=== PATIENT | female | born 1950 | race Caucasian/White ===

== ENCOUNTER → 2016-06-23 | Outpatient (CLI) | payer MEDICARE, OTHER ==
[~2016-06-23] VITALS: Ht 161.3 cm; Wt 107.0 kg
[~2016-06-23] MED LIST: COENZYME Q-10100 M1 PO; FOLIC ACID0.4 MG PO; GLUCOPHAGE1000 MG PO; LEXAPRO20 MG PO; PHENTERMINE15 MG PO; PRAVACHOL 20MG20 MG PO; SLEEP AID50 MG PO; VITAMIN B-1000 MCG/T PO; VITAMIN D31000 IU PO
[2016-06-23 13:05] VITALS: BP 120/74; PULSE 60
[2016-06-23 13:38] VITALS: BP 120/74; PULSE 60
== END ==
LOC: LIGHT 11:40
DX: E78.4 Other hyperlipidemia (principal); R73.01 Impaired fasting glucose; E66.01 Morbid (severe) obesity due to excess calories; Z68.41 Body mass index [BMI] 40.0-44.9, adult; K21.9 Gastro-esophageal reflux disease without esophagitis

== ENCOUNTER → 2016-09-22 | Outpatient (CLI) | payer MEDICARE, OTHER ==
[~2016-09-22] VITALS: Ht 161.3 cm; Wt 106.4 kg
== END ==
LOC: LIGHT 05-19 11:54
DX: E78.4 Other hyperlipidemia (principal); R73.01 Impaired fasting glucose; E66.01 Morbid (severe) obesity due to excess calories; Z68.41 Body mass index [BMI] 40.0-44.9, adult; K21.9 Gastro-esophageal reflux disease without esophagitis

== ENCOUNTER → 2016-10-17 | Outpatient (CLI) | payer MEDICARE, OTHER | LOC: MC.RAD 10-13 11:40 | DX: Z12.31 Encounter for screening mammogram for malignant neoplasm of breast (principal) ==

== ENCOUNTER → 2016-10-20 | Outpatient (CLI) | payer MEDICARE, OTHER ==
[~2016-10-20] VITALS: Ht 161.3 cm; Wt 106.8 kg
[2016-10-20 14:34] VITALS: BP 130/74; PULSE 58
== END ==
LOC: LIGHT 10:08
DX: E78.5 Hyperlipidemia, unspecified (principal); R73.01 Impaired fasting glucose; E66.01 Morbid (severe) obesity due to excess calories; Z68.41 Body mass index [BMI] 40.0-44.9, adult; K21.9 Gastro-esophageal reflux disease without esophagitis

== ENCOUNTER → 2016-12-15 | Outpatient (CLI) | payer MEDICARE, OTHER ==
[~2016-12-15] VITALS: Ht 161.3 cm; Wt 106.4 kg
[2016-12-15 14:25] VITALS: BP 139/70; PULSE 75
== END ==
LOC: LIGHT 11-17 14:05
DX: E78.5 Hyperlipidemia, unspecified (principal); R73.01 Impaired fasting glucose; E66.01 Morbid (severe) obesity due to excess calories; Z68.41 Body mass index [BMI] 40.0-44.9, adult; Z71.3 Dietary counseling and surveillance; K21.9 Gastro-esophageal reflux disease without esophagitis

== ENCOUNTER → 2017-03-02 | Outpatient (CLI) | payer MEDICARE, OTHER ==
[~2017-03-02] VITALS: Ht 161.3 cm; Wt 105.0 kg
[2017-03-02 11:34] VITALS: BP 120/80; PULSE 72
== END ==
LOC: LIGHT 02-23 14:58
DX: E78.5 Hyperlipidemia, unspecified (principal); R73.01 Impaired fasting glucose; E66.01 Morbid (severe) obesity due to excess calories; Z68.41 Body mass index [BMI] 40.0-44.9, adult; Z71.3 Dietary counseling and surveillance; K21.9 Gastro-esophageal reflux disease without esophagitis

== ENCOUNTER → 2017-12-06 | Outpatient (CLI) | payer MEDICARE, OTHER | LOC: COL.VAS 12:30 | DX: R93.1 Abnormal findings on diagnostic imaging of heart and coronary circulation (principal); I51.7 Cardiomegaly ==

== ENCOUNTER → 2018-08-16 | Outpatient (CLI) | payer MEDICARE, OTHER | LOC: MC.RAD 16:42 | DX: Z12.31 Encounter for screening mammogram for malignant neoplasm of breast (principal) ==

== ENCOUNTER 2018-12-19 19:39 | Emergency (ER) | payer MEDICARE, OTHER ==
[~2018-12-19] VITALS: Ht 162.6 cm; Wt 101.4 kg
[2018-12-19 19:49] VITALS: BP 185/88; PULSE 78; TEMP 97.4
== END 2018-12-19 20:24 | disposition left against medical advice (07) ==
LOC: COL.ER 19:39
DX: T22.011A Burn of unspecified degree of right forearm, initial encounter (principal); X15.2XXA Contact with hotplate, initial encounter

== ENCOUNTER → 2019-03-21 | Outpatient (CLI) | payer MEDICARE, OTHER ==
[~2019-03-21] VITALS: Ht 160 cm; Wt 97.7 kg
[~2019-03-21] MED LIST changes: +GLUCOPHAGE XR500 M1 PO; -GLUCOPHAGE1000 MG PO; +HEART MED; +LEXAPRO 10MG10 MG PO; -LEXAPRO20 MG PO; +MULTIPLE VITAMI1 CAP PO
[2019-03-21 11:38] VITALS: BP 128/74; PULSE 60
== END ==
LOC: LIGHT 10:49
DX: E78.5 Hyperlipidemia, unspecified (principal); R73.01 Impaired fasting glucose; K21.9 Gastro-esophageal reflux disease without esophagitis; E66.01 Morbid (severe) obesity due to excess calories; Z68.38 Body mass index [BMI] 38.0-38.9, adult; Z71.3 Dietary counseling and surveillance
CPT/HCPCS: G0463

== ENCOUNTER → 2019-07-09 | Outpatient (CLI) | payer MEDICARE, OTHER | LOC: COL.RAD 08:55 | DX: N89.8 Other specified noninflammatory disorders of vagina (principal) ==

== ENCOUNTER → 2019-07-18 | Outpatient (CLI) | payer MEDICARE, OTHER ==
[~2019-07-18] VITALS: Ht 160 cm; Wt 92.8 kg
[~2019-07-18] MED LIST changes: +COZAAR 25MG25 MG/TAB PO; -LEXAPRO 10MG10 MG PO; +LEXAPRO20 MG PO
[2019-07-18 14:51] VITALS: BP 120/60; PULSE 72
== END ==
LOC: LIGHT 14:00
DX: Z68.36 Body mass index [BMI] 36.0-36.9, adult (principal); E78.5 Hyperlipidemia, unspecified; R73.01 Impaired fasting glucose; K21.9 Gastro-esophageal reflux disease without esophagitis
CPT/HCPCS: G0463

== ENCOUNTER → 2019-08-15 | Outpatient (CLI) | payer MEDICARE, OTHER ==
[~2019-08-15] VITALS: Ht 160 cm; Wt 92.8 kg
[2019-08-15 15:18] VITALS: BP 112/62; PULSE 64
== END ==
LOC: LIGHT 14:48
DX: Z68.36 Body mass index [BMI] 36.0-36.9, adult (principal); E78.5 Hyperlipidemia, unspecified; R73.01 Impaired fasting glucose; K21.9 Gastro-esophageal reflux disease without esophagitis
CPT/HCPCS: G0463

== ENCOUNTER → 2019-08-29 | Outpatient (CLI) | payer MEDICARE, OTHER | LOC: MC.RAD 14:58 | DX: Z12.31 Encounter for screening mammogram for malignant neoplasm of breast (principal) ==

== ENCOUNTER → 2019-11-28 | Outpatient (CLI) | payer MEDICARE, OTHER ==
[~2019-11-28] VITALS: Ht 160 cm; Wt 90.9 kg
[2019-11-28 15:42] VITALS: BP 114/76; PULSE 84
== END ==
LOC: LIGHT 09-19 10:16
DX: Z68.35 Body mass index [BMI] 35.0-35.9, adult (principal); E78.5 Hyperlipidemia, unspecified
CPT/HCPCS: G0463

== ENCOUNTER → 2020-09-17 | Outpatient (CLI) | payer MEDICARE, OTHER | LOC: MC.RAD 14:30 | DX: Z12.31 Encounter for screening mammogram for malignant neoplasm of breast (principal) ==

== ENCOUNTER → 2022-04-14 | Outpatient (CLI) | payer MEDICARE, OTHER | LOC: MC.RAD 13:38 | DX: Z12.31 Encounter for screening mammogram for malignant neoplasm of breast (principal) ==